=== PATIENT | female | born 1965 | race African-American/Black ===

== ENCOUNTER 2023-03-04 22:57 | Observation (INO) | payer OTHER ==
--- OUTSIDE RECORDS SUMMARY | 2023-03-04 23:01 | XMS REPORT | Continuity of Care Document ---
:1965 Author Organization [facility] t Address [address] [place] [address]. [address] [place] [address] Care Team Providers Name Role Phone PCP, PATIENT DOES NOT HAVE A Primary Care Physician Unavaila Amilcar Pastrana Attending Clinician Unavailable Amilcar Au Attending Clinician Sandra FIELD SUPPORT REPRESENTATIVEDavid Attending Clinician Unknown, Attending Attending Clinician Unavailable DAVID CANALES Attending Clinician Unavailable Provider, [facility] Attending Clinician Unavailable Doctor Unassigned, [place] Attending Clinician Unavailable NIKITA CRONIN Attending Clinician Unavailable CLAIR MENDEZ Attending Clinician Unavailable Amilcar BOX Admitting Clinician Unavailable Payers Payer Name Policy Type Policy Number Effective Date Expiration Date S ellie [employer] [id number] 2023 00:00:00 Problems Condition Condition Condition Status Onset Resolution Last Treating Co mments Source Name Details Category Date Date Treatment Clinician Date No known No known Disease Unive rs active active ity of problems problems [facility] Allergies, Adverse Reactions, Alerts Allergy Allergy Status Severity Reaction(s) Onset Inactive Treating Comm ents Source Name Type Date Date Clinician NO KNOWN Drug Active Univers ALLERGIE Class ity of S [facility] Social History Social Habit Start Date Stop Date Quantity Comments Source Gender identity 2021-09-02 Identifies as [facility] 19:39:29 female gender [facility] (finding) [facility] History of tobacco Current smoker [facility] Exposure to 2023-01-28 2023-02-07 Not sure [facility]-CoV-2 (event) 00:00:00 21:38:00 [facility] Tobacco use and 2022-08-28 2022-08-28 Smokeless tobacco Un iversity of exposure 00:00:00 00:00:00 non-user [facility] Cigarette 2021-09-02 2021-09-02 Worship pack-years 00:00:00 00:00:00 Hospital Alcohol intake 2021-09-02 2021-09-02 Current Worship 00:00:00 00:00:00 non-drinker of Hospital alcohol (finding) History of Social 2021-09-02 2021-09-[address] function 00:00:00 00:00:00 Hospital Sex Assigned At [birth year] Universit y of 00:00:00 00:00:00 [facility] Smoking Status Start Date Stop Date Source Tobacco smoking [facility] consumption unknown Medical Bran ch Never smoked tobacco [facility] Ex-smoker 2021-09-02 00:00:00 2021-09-02 [facility] 00:00:00 Medications Ordered Filled Start Stop Current Ordering Indication Dosage Frequency Signature Comments Components Source Medication Medication Date Date Medication? Clinician (SIG) Name Name naproxen 2022- 500mg 500 mg, Univ ers (NAPROSYN) 02-08 05-30 Oral, ity of tablet 500 01:45: 02:22 ONCE, 1 La[place] as mg 00 :00 dose, On Medical Mon Branch 02/07/23 at 204, Routine naproxen Yes [id number] 500mg Take 1 U nivers (NAPROSYN) 02-07 tablet by ity of 500 mg 00:00: mouth in [place] tablet 00 the Medical morning Branch and 1 tablet in the evening. Take with meals. losartan 50 2021-09 Yes 50mg Take 50 mg Univers mg tablet 2-17 by mouth. ity o f 18:59: [address] losartan 50 2021-09 Yes 50mg Take 50 mg Univers mg tablet 2-17 by mouth. ity o f 18:59: [address] losartan 50 2021-09 Yes 50mg Take 50 mg Univers mg tablet 2-17 by mouth. ity o f 18:59: [address] Branch losartan 50 2021-09- No [id number] 50mg Take 1 Univers mg tablet 10-29 tablet by ity of 00:00: 05:59 mouth in [place] 00 :00 the Medical morning [place] for 14 days. losartan 50 2021-09- No [id number] 50mg Take 1 Univers mg tablet 10-29 tablet by ity of 00:00: 05:59 mouth in [place] 00 :00 the [facility] morning Royal for 14 days. losartan 2020-09 Yes 50mg QD Take 50 mg Met hodi (COZAAR) 50 2-[address] MG tablet 16:03: daily. Hospit a 58 l Vital Signs Vital Name Observation Time Observation Value Comments Source Systolic blood 2023-02-08 02:24:26 217 mm[Hg] Univer sity [facility] Diastolic blood 2023-02-08 02:24:26 101 mm[Hg] [facility] rate 2023-02-08 02:24:26 64 /min [facility] Respiratory rate 2023-02-08 02:24:26 16 /min [facility] Oxygen saturation in 2023-02-08 02:24:26 99 /min [facility] Arterial blood by [facility] Pulse oximetry Royal Body temperature 2023-02-08 00:36:[address] [facility] Body height 2023-02-08 00:36:00 170.2 cm [facility] Body weight 2023-02-08 00:36:00 97.977 kg [facility] BMI 2023-02-08 00:36:00 33.83 kg/m2 [facility] Systolic blood 2022-08-29 01:13:00 188 mm[Hg] [facility] 2022-08-29 01:13:00 76 mm[Hg] [facility] Body temperature 2022-08-29 00:58:[address] [facility] Respiratory rate 2022-08-29 00:58:00 16 /min [facility] Body weight 2022-08-29 00:58:00 97.977 kg [facility] Medical Royal Oxygen saturation in 2022-08-29 00:58:00 98 /min [facility] Arterial blood by [facility] Pulse oximetry Branch Heart rate 2022-08-29 00:58:00 77 /min [facility] Medical Branch Procedures Procedure Date / Time Performing Clinician Source Performed ASSIGNMENT OF BENEFITS 2023-02-08 01:43:06 Doctor Unassbenita, [facility] [place] [facility] NOTICE OF PRIVACY 2023-02-08 00:25:05 Doctor Unassigned, [facility] PRACTICES [place] [facility] CONSENT/REFUSAL FOR 2023-02-08 00:24:34 Doctor Unassbenita, [facility] DIAGNOSIS AND TREATMENT [place] [facility] CONSENT/REFUSAL FOR 2022-08-29 00:53:00 Doctor Unassigned, [facility] DIAGNOSIS AND TREATMENT [place] [facility] PATIENT FINANCIAL Doctor Maxi, [facility] RESPONSIBILITY - ALL [place] [facility] Bra nch FORMS Plan of Care Planned Activity Planned Date Details Comments Source Future Scheduled 2023-02-26 [facility] Test 20:46:26 malignant neoplasm of colon (procedure) [code = 090612679] Future Scheduled 2023-02-26 [facility] 20:46:26 malignant neoplasm of colon (procedure) [code = 053860987] Future Scheduled 2023-02-26 [facility] Test 20:46:26 malignant neoplasm of colon (procedure) [code = 335484292] Future Scheduled 2023-02-26 COVID-19 VACCINE [facility] Test 20:46:26 (#1) [code = COVID-19 VACCINE (#1)] Future Scheduled 2023-02-26 Hepatitis C [facility] 20:46:26 screening (procedure) [code = 556963396] Future Scheduled 2023-02-26 [facility] Test 20:46:26 malignant neoplasm of cervix (procedure) [code = 021212843] Future Scheduled 2023-02-26 BREAST CANCER [facility] Test 20:46:26 SCREENING [code = BREAST CANCER SCREENING] Future Scheduled 2023-02-26 [facility] Test 20:46:26 malignant neoplasm of colon (procedure) [code = 108030194] Future Scheduled 2023-02-26 [facility] Test 20:46:26 malignant neoplasm of colon (procedure) [code = 180612707] Future Scheduled 2023-02-26 SHINGLES VACCINES [facility] Test 20:46:26 (1 of 2) [code = SHINGLES VACCINES (1 of 2)] Future Scheduled 2023-02-26 INFLUENZA VACCINE [facility] Test 20:46:26 [code = INFLUENZA VACCINE] Encounters Start End Encounter Admission Attending Care Care Encounter Source Date/Time Date/Time Type Type Clinicians Facility Department ID 2023-02-07 2023-02-07 Emergency X Amilcar BOX [facility] ERT [id number] Univers 19:39:00 21:42:00 ity [facility] 2023-02-07 2023-02-07 Emergency X Amilcar BOX [facility] ERT [id number] Univers 19:39:00 21:42:00 ity [facility] 2023-02-07 2023-02-07 Emergency [facility] [id number] Univers 19:39:00 21:42:00 Leona LOUIS [id number] i ty [facility] [id number] [facility] [id number] [address] 2022-08-28 2022-08-28 Urgent David Canales [facility] [id number] Univers 19:00:00 19:20:00 Care Unknown, [facility] [id number] ity [facility] [id number] Laith as CURT?BLEA [id number] [address] MEDICAL OFFICE BUILDING 2022-08-28 2022-08-28 Outpatient R SANDRA [facility] [id number] Univers 19:00:00 19:00:00 DAVID saleem [facility] 2022-08-28 2022-08-28 Letter Provider, [facility] [id number] Univers 00:00:00 00:00:00 (Out) [facility] FELIZ [id number] it y of Urgent Care [place] [id number] [place] CURT?BLEA [id number] Nm dical [place] [address] Branch MEDICAL OFFICE BUILDING 2022-08-28 2022-08-28 Orders Doctor CLAIR [id number] Univers 00:00:00 00:00:00 Only Unassigned, HANNA [id number] ity of [place] [facility] [id number] Laith as [id number] [facility] emilia 009 Branch 2021-09-02 2021-09-02 Outpatient CRONIN, [facility] [id number] [place] 00:00:00 00:00:00 VINCELLIS [address] 2021-08-30 2021-08-30 Emergency ANDREA, [facility] 06 [id number] [place] 00:00:00 00:00:00 CLAIR [address] Orders Doctor CLAIR [id number] [facility] 00:00:00 00:00:00 Only Unassigned, HANNA [id number] ity of [place] [facility] [id number] Laith as [id number] [address] Results This patient has no known results.
[2023-03-04 23:54] LABS: Absolute Lymphocytes (CBC) 1.9 K/uL (0.7-4.9); Hematocrit 38.8 % (36.0-45.0); Lymphocytes % 37.4 % (15.3-44.8); MCV 92.1 fL (80-100); MPV 10.4 fL (7.6-11.3); RBC Red Blood Cell Count 4.21 M/uL (3.86-4.86)
[2023-03-05] MEDS ORDERED: MORPHINE 4 MG/ML SYR ONE (00:06)
[2023-03-05] MEDS ORDERED: ONDANSETRON 4 MG/2 ML VIAL ONE (00:06)
[2023-03-05] MEDS ORDERED: HYDRALAZINE HCL 20 MG/ML VIAL ONE (00:06)
[2023-03-05 00:22] LABS: Albumin 3.6 g/dL (3.4-5.0); Bilirubin Direct 0.1 mg/dL (0-0.2); Bilirubin Indirect, Calculated 0.5 mg/dL (0.2-0.8); Bilirubin Total 0.6 mg/dL (0.2-1.0); Magnesium 2.4 mg/dL (1.6-2.4); Potassium 3.6 mEq/L (3.5-5.1); Protein, Total 7.1 g/dL (6.4-8.2); Troponin High Sensitivity 23.1 pg/mL (<58.9)
[2023-03-05 00:23] LABS: Protime INR 0.8
--- NOTE | 2023-03-05 01:28 | ER ---
Nurse's Notes [facility] Name: Petra Hightower Age: 57 yrs Sex: Female : 1965 Arrival Date: 03/04/2023 Time: 22:57 Bed 14 Private MD: Diagnosis: Chest pain, unspecified Presentation: 03/04 23:07 Chief complaint: Patient states: chest pain began last pm. Coronavirus screen: Vaccine kl status: Patient reports being unvaccinated. Ebola Screen: Patient negative for fever greater than or equal to 101.5 degrees Fahrenheit, and additional compatible Ebola Virus Disease symptoms. Initial Sepsis Screen: Does the patient meet any 2 criteria? No. Patient's initial sepsis screen is negative. Does the patient have a suspected source of infection? No. Patient's initial sepsis screen is negative. Risk Assessment: Do you want to hurt yourself or someone else? Patient reports no desire to harm self or others. 23:07 Method Of Arrival: Ambulatory 23:07 Acuity: RENETTA 3 kl Triage Assessment: 23:10 General: Appears uncomfortable, Behavior is calm, cooperative. Pain: Complains of pain kl in anterior aspect of left upper chest and left breast Pain currently is 9 out of 10 on a pain scale. at worst was 10 out of 10 on a pain scale. Aggravated by increased activity. Historical: - Allergies: 23:08 No Known Allergies; kl - Home Meds: 23:08 Flexeril Oral 10 mg as needed [Active]; losartan 50 mg oral tablet daily [Active]; kl - PMHx: 23:08 Hypertensive disorder; kl - PSHx: 23:08 None; kl - Immunization history:: Adult Immunizations not up to date. - Social history:: Smoking status: Patient denies any tobacco usage or history of. Screenin/24 01:00 [facility] ED Fall Risk Assessment (Adult) History of falling in the last 3 months, ll3 including since admission No falls in past 3 months (0 pts) Confusion or Disorientation No (0 pts) Intoxicated or Sedated No (0 pts) Impaired Gait No (0 pts) Mobility Assist Device Used No (0 pt) Altered Elimination No (0 pt) Score/Fall Risk Level 0 - 2 = Low Risk Oriented to surroundings, Maintained a safe environment, Educated pt \T\ family on fall prevention, incl call for assistance when getting out of bed. Abuse screen: Denies threats or abuse. Denies injuries from another. Nutritional screening: No deficits noted. Tuberculosis screening: No symptoms or risk factors identified. Assessment: 03/04 23:30 General: Appears uncomfortable, Behavior is calm, cooperative. Pain: Complains of pain ll3 in chest Pain radiates to anterior aspect of left upper chest Pain currently is 10 out of 10 on a pain scale. Pain began 1 day ago. Is continuous. Cardiovascular: Patient's skin is warm and dry. Rhythm is sinus bradycardia Chest pain is described as mild, quality is heaviness, is located in left anterior chest wall radiates to left jaw(s) began 1 day ago episodes are continuous. Respiratory: Respiratory effort is even, unlabored, Respiratory pattern is regular, symmetrical. Derm: Skin is pink, warm \T\ dry. Vital Signs: 23:07 BP 213 / 104; Pulse 70; Resp 18; Temp 97.9(TE); Pulse Ox 100% ; Weight 97.52 kg (R); kl Height 5 ft. 7 in. ; Pain 9/10; 03/05 00:15 BP 146 / 83; Pulse 58; Resp 16; Pulse Ox 98% on R/A; ll3 03/04 23:07 Body Mass Index 33.67 (97.52 kg, 170.18 cm) 03/04 23:07 Pain Scale: Adult ED Course: 03/04 23:00 Patient arrived in ED. es 23:06 Ryan Perez PA is PHCP. [facility] 23:06 Aly Gasca MD is Attending Physician. [facility] 23:08 Triage completed. 23:43 Initial lab(s) drawn, by nd, sent to lab. Inserted saline lock: 22 gauge in right ll3 antecubital area, using aseptic technique. Blood collected. 03/05 00:18 XRAY Chest (1 view) In Process Unspecified. EDMS 01:00 Patient has correct armband on for positive identification. Placed in gown. Bed in low ll3 position. Call light in reach. Side rails up X 1. Adult w/ patient. Client placed on continuous cardiac and pulse oximetry monitoring. NIBP monitoring applied. 01:00 Arm band placed on Patient placed in an exam room, on a stretcher, on pulse oximetry. ll3 01:27 Tanner Hercules MD is Hospitalizing Provider. [facility] 04:19 No provider procedures requiring assistance completed. Patient admitted, IV remains in ll3 place. Patient maintains SpO2 saturation greater than 95% on room air. 10:18 Brandy Mao, RN is Primary Nurse. db Administered Medications: 00:09 Drug: morphine IVP or IV 4 mg Route: IVP; Infused Over: 4 mins; Site: right antecubital;ll3 04:15 Follow up: Response: No adverse reaction; Marked relief of symptoms ll3 00:09 Drug: Ondansetron IVP 4 mg Route: IVP; Site: right antecubital; ll3 04:15 Follow up: Response: No adverse reaction ll3 00:09 Drug: hydrALAZINE IVP 5 mg Route: IVP; Site: right antecubital; ll3 01:00 Follow up: Response: No adverse reaction; Blood pressure is lowered ll3 01:53 Drug: Aspirin PO Chewable Tablet 324 mg Route: PO; ll3 04:14 Follow up: Response: No adverse reaction 3 Medication: 04:20 VIS not applicable for this client. ll3 Outcome: 01:27 Decision to Hospitalize by Provider. [facility] 04:20 Admitted to ER Hold. Please see [facility] for further documentation. 3 04:20 Condition: stable 04:20 Instructed on the need for admit. 11:21 Patient left the ED. db Signatures: Dispatcher [employer] Radha Yates RN RN kl Mickail, Joel, PA PA Miriam Castellanos Lynsea, RN RN [facility] Brandy Mao, RN RN db Corrections: (The following items were deleted from the chart) 03/04 23:10 23:08 Allergies: No Known Allergies; sebastian cortes
--- NOTE | 2023-03-05 01:28 | EDPHYS ---
Physician Documentation [facility] Name: Petra Hightower Age: 57 yrs Sex: Female : 1965 Arrival Date: 03/04/2023 Time: 22:57 Bed 14 Private MD: ED Physician Aly Gasca HPI: 03/04 23:13 This 57 yrs old Female presents to ER via Ambulatory with complaints of Chest Pain. jmm 23:13 The patient or guardian reports chest pain that is located primarily in the substernal [facility] area. Onset: gradually, 1 day(s) ago. The pain does not radiate. Associated signs and symptoms: Pertinent negatives: lower extremity pain, lower extremity swelling. The chest pain is described as aching. Duration: The patient or guardian reports a single episode. Modifying factors: The symptoms are alleviated by nothing. the symptoms are aggravated by nothing. Historical: - Allergies: 23:08 No Known Allergies; kl - Home Meds: 23:08 Flexeril Oral 10 mg as needed [Active]; losartan 50 mg oral tablet daily [Active]; kl - PMHx: 23:08 Hypertensive disorder; kl - PSHx: 23:08 None; kl - Immunization history:: Adult Immunizations not up to date. - Social history:: Smoking status: Patient denies any tobacco usage or history of. ROS: 23:13 Constitutional: Negative for fever, chills, and weight loss. jmm 23:13 Respiratory: Negative for shortness of breath, cough, wheezing, and pleuritic chest pain, Abdomen/GI: Negative for abdominal pain, nausea, vomiting, diarrhea, and constipation. 23:13 Cardiovascular: Positive for chest pain. 23:13 All other systems are negative. Exam: 23:13 Constitutional: This is a well developed, well nourished patient who is awake, alert, jmm and in no acute distress. Head/Face: atraumatic. Eyes: EOMI, no conjunctival erythema appreciated ENT: Moist Mucus Membranes Neck: Trachea midline, Supple Chest/axilla: Normal chest wall appearance and motion. Cardiovascular: Regular rate and rhythm. No edema appreciated Respiratory: Normal respirations, no respiratory distress appreciated Abdomen/GI: Non distended Back: Normal ROM Skin: General appearance color normal MS/ Extremity: Moves all extremities, no obvious deformities appreciated, no edema noted to the lower extremities Neuro: Awake and alert Psych: Behavior is normal, Mood is normal, Patient is cooperative and pleasant Vital Signs: 23:07 BP 213 / 104; Pulse 70; Resp 18; Temp 97.9(TE); Pulse Ox 100% ; Weight 97.52 kg (R); Height 5 ft. 7 in. ; Pain 9/10; 03/05 00:15 BP 146 / 83; Pulse 58; Resp 16; Pulse Ox 98% on R/A; ll3 03/04 23:07 Body Mass Index 33.67 (97.52 kg, 170.18 cm) 03/04 23:07 Pain Scale: Adult kl MDM: 03/04 23:18 Patient medically screened. [facility] 03/05 01:26 Differential diagnosis: acute myocardial infarction, acute pericarditis, anxiety, [facility] stable angina, unstable angina. The patient was given aspirin in the Emergency Department. 01:26 Data reviewed: vital signs, nurses notes, lab test result(s), EKG, radiologic studies, [facility] plain films. Consideration of Admission/Observation Patient was admitted/placed on observation. Escalation of care including admission/observation considered. Counseling: I had a detailed discussion with the patient and/or guardian regarding: the historical points, exam findings, and any diagnostic results supporting the discharge/admit diagnosis, radiology results, the need for outpatient follow up, to return to the emergency department if symptoms worsen or persist or if there are any questions or concerns that arise at home. 03/04 23:13 Order name: Basic Metabolic Panel; Complete Time: 00:24 [facility] 03/04 23:13 Order name: CBC with Diff; Complete Time: 23:59 [facility] 03/04 23:13 Order name: LFT's; Complete Time: 00:24 [facility] 03/04 23:13 Order name: Magnesium; Complete Time: 00:24 [facility] 03/04 23:13 Order name: NT PRO-BNP; Complete Time: 00:24 [facility] 03/04 23:13 Order name: PT-INR; Complete Time: 00:27 [facility] 03/04 23:13 Order name: Troponin HS; Complete Time: 00:24 [facility] 03/05 02:12 Order name: DD; Complete Time: 04:50 la1 03/05 04:50 Order name: Lipid Profile [facility] 03/05 04:51 Order name: Troponin High Sensitivity [facility] 03/05 04:56 Order name: T4 Free [facility] 03/05 04:56 Order name: Thyroid Stimulating Hormone [facility] 03/05 11:08 Order name: Potassium [facility] 03/05 11:12 Order name: Troponin High Sensitivity [facility] 03/04 23:13 Order name: XRAY Chest (1 view) [facility] 03/04 23:13 Order name: EKG; Complete Time: 23:14 [facility] 03/04 23:13 Order name: Cardiac monitoring; Complete Time: 23:33 [facility] 03/04 23:13 Order name: EKG - Nurse/Tech; Complete Time: 23:33 [facility] 03/04 23:13 Order name: IV Saline Lock; Complete Time: 23:43 [facility] 03/04 23:13 Order name: Labs collected and sent; Complete Time: 23:43 [facility] 03/04 23:13 Order name: O2 Per Protocol; Complete Time: 23:33 [facility] 03/04 23:13 Order name: O2 Sat Monitoring; Complete Time: 23:33 [facility] Administered Medications: 00:09 Drug: morphine IVP or IV 4 mg Route: IVP; Infused Over: 4 mins; Site: right antecubital;ll3 04:15 Follow up: Response: No adverse reaction; Marked relief of symptoms ll3 00:09 Drug: Ondansetron IVP 4 mg Route: IVP; Site: right antecubital; ll3 04:15 Follow up: Response: No adverse reaction ll3 00:09 Drug: hydrALAZINE IVP 5 mg Route: IVP; Site: right antecubital; ll3 01:00 Follow up: Response: No adverse reaction; Blood pressure is lowered ll3 01:53 Drug: Aspirin PO Chewable Tablet 324 mg Route: PO; ll3 04:14 Follow up: Response: No adverse reaction ll3 Disposition: 06:14 Co-signature as Attending Physician, Aly Gasca MD I agree with the assessment sp4 and plan of care. I reviewed the patient's care provided by the Advanced Practice Provider and agree with the diagnosis and treatment plan. Disposition Summary: 03/05/23 01:27 Hospitalization Ordered Hospitalization Status: Observation jm Provider: Tanner Hercules Condition: Stable jm Problem: new jmm Symptoms: are unchanged [facility] Bed/Room Type: Standard [facility] Location: Telemetry/MedSurg (observation)(03/05/23 10:17) laura Room Assignment: 427(03/05/23 10:17) laura Diagnosis - Chest pain, unspecified [facility] Forms: - Medication Reconciliation Form [facility] - SBAR form [facility] Signatures: Dispatcher [employer] EDRadha Solares RN RN Ryan Perez PA PA [facility] Kevan Egan, ACCOUNT REVIEW SPECIALIST-C ACCOUNT REVIEW SPECIALIST-Cla1 Dwayne Carranza RN RN ja1 Thu Martinez RN RN 3 Vidhya Arias 6 Aly Gasca MD MD sp4 Corrections: (The following items were deleted from the chart) 03/04 23:10 23:08 Allergies: No Known Allergies; [facility] 03/05 01:37 01:27 Telemetry/MedSurg (observation) [place] [address] 01:37 01:27 [place] [address] 10:17 01:37 [facility] ER HOLD [place] [address] 10:17 01:37 ERHOLD- [place] [address]
[2023-03-05] MEDS ORDERED: ASPIRIN 81 MG CHEWABLE TABLET ONE (01:55)
--- NOTE | 2023-03-05 02:19 | P.HP ---
Certification for Inpatient Patient admitted to: Observation With expected LOS: <2 Midnights Patient will require the following post-hospital care: None Practitioner: I am a practitioner with admitting privileges, knowledge of patient current condition, hospital course, and medical plan of care. Services: Services provided to patient in accordance with Admission requirements found in Title 42 Section 412.3 of the Code of Federal Regulations <Kevan Egan Gato Randall - Last Filed: 03/05/23 02:17> Patient History Date of Service: 03/05/23 Reason for admission: Chest pain History of Present Illness: 57-year-old female with history of hypertension presents emergency department chief complaint of chest pain. She reports that the chest pain began on the evening of 03/03/2023 prior to going to bed. She describes the pain as sharp/tightness she does report its worse with exertion with some shortness of breath as well. She reports her last tress test was about 5 to 6 years ago she takes losartan at home for hypertension but no other home medications. She is evaluated in the emergency department her initial high-sensitivity opponent was normal at 20.1 EKG without STEMI criteria present chest x-ray is unremarkable. ED provider wishes to admit under observation for ACS rule out. - Past Medical/Surgical History -: Hypertension -: None Psychosocial/ Personal History: Patient works as a gaming cashier, lives at home with her - Family History Father -: Diabetes - Social History Smoking Status: Never smoker Alcohol use: No CD- Drugs: No Caffeine use: Yes Place of Residence: Home <Kevan Egan Gato Randall - Last Filed: 03/05/23 02:17> Date of Service: 03/05/23 <Tanner Hercules - Last Filed: 03/05/23 15:50> Review of Systems 10-point ROS is otherwise unremarkable Respiratory: SOB with Excertion Cardiovascular: Chest Pain <Kevan Egan - Last Filed: 03/05/23 02:17> Physical Examination - Physical Exam General: Alert, In no apparent distress, Oriented x3 HEENT: Atraumatic, PERRLA, Mucous membr. moist/pink, EOMI, Sclerae nonicteric Neck: Supple, 2+ carotid pulse no bruit, No LAD, Without JVD or thyroid abnormality Respiratory: Clear to auscultation bilaterally, Normal air movement Cardiovascular: Regular rate/rhythm, Normal S1 S2 Capillary refill: <2 Seconds Gastrointestinal: Normal bowel sounds, No tenderness Musculoskeletal: No tenderness Integumentary: No rashes Neurological: Normal gait, Normal speech, Normal strength at 5/5 x4 extr, Normal tone, Normal affect Lymphatics: No axilla or inguinal lymphadenopathy - Studies Laboratory Data (last 24 hrs) 03/04/23 23:41: PT 9.6, INR 0.80 03/04/23 23:41: WBC 5.00, Hgb 12.8, Hct 38.8, Plt Count 190 03/04/23 23:41: Sodium 142, Potassium 3.6, BUN 17, Creatinine 0.95, Glucose 108 H, Magnesium 2.4, Total Bilirubin 0.6, AST 11 L, ALT 23, Alkaline Phosphatase 108 <Kevan Egan - Last Filed: 03/05/23 02:17> - Studies Laboratory Data (last 24 hrs) 03/04/23 23:41: PT 9.6, INR 0.80 03/04/23 23:41: WBC 5.00, Hgb 12.8, Hct 38.8, Plt Count 190 03/04/23 23:41: Sodium 142, Potassium 3.6, BUN 17, Creatinine 0.95, Glucose 108 H, Magnesium 2.4, Total Bilirubin 0.6, AST 11 L, ALT 23, Alkaline Phosphatase 108 <Tanner Hercules - Last Filed: 03/05/23 15:50> Assessment and Plan - Plan Assessment: Chest pain rule out ACS Hypertension Plan: Chest pain rule out ACS Trend troponins, monitor on telemetry. Cardiology consult. Given aspirin in ED. Will obtain D-dimer to rule out PE given persistent chest pain, dyspnea on exertion. Appreciate further input from cardiology. Lipid panel in the morning. Hypertension Blood pressure elevated, patient on losartan currently we will add metoprolol tartrate. DVT PPX: Lovenox Code status: Full Discharge Plan: Home Plan to discharge in: 24 Hours - Advance Directives Does patient have a Living Will: No Does patient have a Durable POA for Healthcare: No - Code Status/Comfort Care Code Status Assessed: Yes (Full code) Critical Care: No Time Spent Managing Pts Care (In Minutes): 55 <Kevan Egan - Last Filed: 03/05/23 02:17> Physician Review: Patient Assessed, Agree with Above Assessment and Plan <Tanner Hercules - Last Filed: 03/05/23 15:50>
[2023-03-05] MEDS ORDERED: MORPHINE 2 MG/ML SYR IV PRN (02:38)
[2023-03-05] MEDS ORDERED: ONDANSETRON 4 MG/2 ML VIAL IV PRN (02:38)
[2023-03-05 04:56] LABS: Thyroid Stimulating Hormone 3.01 uIU/mL (0.358-3.740)
[2023-03-05] MEDS: METOPROLOL TAR 25 MG TAB PO SCH ×2 (06:00→17:50)
[2023-03-05] MEDS ORDERED: METOPROLOL TAR 25 MG TAB ONE (06:01)
[2023-03-05] MEDS: ASPIRIN EC 81 MG TAB PO SCH (09:00)
[2023-03-05] MEDS: LOSARTAN POTASSIUM 50 MG TABLET PO SCH (09:00)
[2023-03-05 10:36] VITALS: O2SAT 99
[2023-03-05] MEDS ORDERED: LOSARTAN POTASSIUM 50 MG TABLET ONE (10:49)
[2023-03-05] MEDS ORDERED: ASPIRIN EC 81 MG TAB PO ONE (10:50)
[2023-03-05] MEDS ORDERED: CALCIUM CARBONATE CHEW 500MG TAB PO PRN (11:52)
[2023-03-05] MEDS ORDERED: POTASSIUM 25 MEQ EFFERV TAB PO ONE (12:00)
[2023-03-05] MEDS: ACETAMINOPHEN 325 MG TABLET PO PRN (12:05)
[2023-03-05] MEDS ORDERED: ATORVASTATIN 40 MG TAB PO SCH (21:00)
--- NOTE | 2023-03-05 21:15 | RAD REPORT ---
EXAM DESCRIPTION: USExtrem Venous W Compress Bil03/05/2023 9:01 pm CLINICAL HISTORY: Elevated D-dimer COMPARISON: none FINDINGS: The common femoral, superficial femoral, greater saphenous, popliteal and posterior tibial veins bilaterally are compressible and demonstrate augmentation. Doppler demonstrates good flow. Grayscale, color and spectral analysis performed on all vessels IMPRESSION: No evidence of deep venous thrombosis involving either lower extremity.
--- NOTE | 2023-03-05 21:22 | RAD REPORT ---
EXAM DESCRIPTION: USCarotid Artery Bilateral03/05/2023 9:01 pm CLINICAL HISTORY: Neck pain COMPARISON: None FINDINGS: The velocity of the right internal carotid artery equals 273 cm/sec. The right ICA/CCA rat io is elevated The velocity of the left internal carotid artery equals 214 cm/sec. The left ICA/CCA ratio is elevat ed Mild plaque is present within the carotid arteries. The vertebral arteries demonstrate antegrade flow IMPRESSION: Elevated velocities of right and left internal carotid arteries most likely secondary to tortuosity. Mild plaque is present within the carotid arteries NASCET criteria used. Mild 0-49% stenosis Moderate 50-69% stenosis Severe 70-99% stenosis
--- NOTE | 2023-03-05 21:35 | RAD REPORT ---
EXAM DESCRIPTION: RAD - Chest Single View - 03/05/2023 12:17 am CLINICAL HISTORY: 57 years, Female, CHEST PAIN COMPARISON: None. FINDINGS: Single view of the chest was obtained portable. No prior films are available for compariso n. External EKG leads within the [id number] limits diagnosis. The cardiomediastinal silhouette dem onstrate to be unremarkable. The heart is not enlarged. The thoracic aorta is mildly tortuous with in timal aortic arch ossification. The pulmonary vasculature is normal distribution. Costophrenic angles are sharp. No areas of consolidation or masses are seen. The rest of the soft tissue and bony st ructures demonstrate to be unremarkable. IMPRESSION: No acute cardiopulmonary disease seen. Electronically signed by: Gumaro Helm MD 03/05/2023 12:46 AM CDT Due to temporary technical issues with the PACS/Fluency reporting system, reports are being signed by the in house radiologists without review as a courtesy to insure prompt reporting. The interpreting radiologist is fully responsible for the content of the report.
--- NOTE | 2023-03-05 21:39 | RAD REPORT ---
EXAM DESCRIPTION: CT - Chest For Pe Angio - 03/05/2023 6:25 am CLINICAL HISTORY: Chest pain, elevated DDimer TECHNIQUE: Contiguous axial images obtained through the chest during angiographic phase following th e uneventful administration of IV contrast. Sagittal and coronal reformatted images were provided. 3- D MIP reformatted images were provided. This exam was performed according to our departmental dose-optimization program, which includes autom ated exposure control, adjustment of the mA and/or kV according to patient size and/or use of iterati ve reconstruction technique. COMPARISON: No prior exams provided for comparison. FINDINGS: Diagnostic quality: Suboptimal visualization of subsegmental pulmonary arteries. Lungs: No focal consolidation. Airways are patent. Pleura: No effusion. No pneumothorax. Heart and pericardium: The heart is normal in size. No pericardial effusion. Mediastinum and emmanuel: No pathologically enlarged lymph nodes. Lower neck and chest wall: Unremarkable Vessels: No evidence of central pulmonary emboli.. No thoracic aortic aneurysm. Upper abdomen: Unremarkable Bones: Unremarkable IMPRESSION: 1. No evidence of central pulmonary emboli. Suboptimal visualization of subsegmental p ulmonary arteries. 2. No focal consolidation. Electronically signed by: Dwayne David MD 03/05/2023 5:58 AM CDT Due to temporary technical issues with the PACS/Fluency reporting system, reports are being signed by the in house radiologists without review as a courtesy to insure prompt reporting. The interpreting radiologist is fully responsible for the content of the report.
[2023-03-06 02:33] VITALS: BMI 33.6
[2023-03-06 04:03] LABS: Potassium 3.7 mEq/L (3.5-5.1)
[2023-03-06] MEDS: METOPROLOL TAR 25 MG TAB PO SCH (05:43)
[2023-03-06] MEDS ORDERED: POTASSIUM CL SA 10 MEQ TAB PO ONE (09:00)
[2023-03-06] MEDS: ASPIRIN EC 81 MG TAB PO SCH (09:18)
[2023-03-06] MEDS: LOSARTAN POTASSIUM 50 MG TABLET PO SCH (09:19)
[2023-03-06 10:00] VITALS: TEMP 97.6
[2023-03-06 12:24] VITALS: BP 172/92
[2023-03-06] MEDS: ACETAMINOPHEN 325 MG TABLET PO PRN (12:47)
--- NOTE | 2023-03-06 14:24 | EKG ---
Test Date: 2023-03-04 Test Time: 23:28:21 Procurement Professional: TOM MEASUREMENT RESULTS: Intervals: Rate: 59 [place]: 152 QRSD: 84 QT: 422 QTc: 417 [place]: P: 69 [place]: 152 QRS: 45 T: 36 INTERPRETIVE STATEMENTS: Sinus bradycardia Otherwise normal ECG No previous ECG available for comparison Electronically Signed On 03-06-23 14:22:04 CDT by Peyman Tabor
--- NOTE | 2023-03-06 16:05 | P.DS ---
Admission Date: 03/05/23 Discharge Date: 03/06/23 Disposition: ROUTINE DISCHARGE Discharge Condition: GOOD Reason for Admission: Chest pain Consultations: 1. Cardiology Hospital Course: DIAGNOSES: # Hypertensive Urgency with Chest Pain # Dyslipidemia HOSPITAL COURSE: Ms. Petra Hightower is a pleasant 57 year old female with a past medical history significant for hypertension who was admitted to the [facility] on 03/05/2023 for chest pain. She was admitted to the Medicine service. Upon further evaluation, her initial blood pressure was 213/104. Her laboratory studies were notable for a d-dimer of 1012. Her troponin trend was 23.1 -> 22.1 -> 22.9. Her chest x-ray revealed, "no acute cardiopulmonary disease seen." Her CT chest angiogram revealed, "1. No evidence of central pulmonary emboli. Suboptimal visualization of subsegmental pulmonary arteries. 2. No focal consolidation." Her carotid ultrasound revealed, "elevated velocities of right and left internal carotid arteries most likely secondary to tortuosity. Mild plaque is present within the carotid arteries." Her bilateral lower extremity Doppler revealed, "no evidence of deep venous thrombosis involving either lower extremity." Cardiology was consulted and she was evaluated by Dr. Tabor. He felt that her chest pain was non-cardiac in nature. He has cleared her to be discharged home with outpatient follow-up and an outpatient nuclear stress test. On 03/06/2023, she was seen on rounds and deemed medically stable for discharge. She was discharged with instructions to schedule follow-up appointments with her PCP (Dr. Frausto) and with Cardiology (Dr. Tabor). She was provided prescriptions for metoprolol and atorvastatin. She and her were given th e opportunity to ask questions and reported no further questions. Furthermore, all questions were answered to the best of my ability. A copy of this discharge summary will be sent to the above providers to facilitate continuity of care. Today, I personally spent 25 minutes on his case, of which greater than 50% of the time was spent in patient education, counseling, and coordination of care as described above. Vital Signs/Physical Exam: Temp Pulse Resp BP Pulse Ox 97.6 F 59 18 172/92 H 98 03/06/23 12:00 03/06/23 12:00 03/06/23 12:03/06/23 12:00 03/06/23 12:00 General: Alert, In no apparent distress, Oriented x3 HEENT: Atraumatic, Mucous membr. moist/pink, Sclerae nonicteric Neck: JVD not distended Respiratory: Clear to auscultation bilaterally, Normal air movement Cardiovascular: No edema, Regular rate/rhythm, Normal S1 S2, No gallops, No rubs, No murmurs Gastrointestinal: Normal bowel sounds, Soft and benign, Non-distended, No tenderness, No rebound, No guarding Musculoskeletal: No clubbing Integumentary: No rashes Neurological: Normal speech, Normal affect Laboratory Data at Discharge: WBC 5.00 thou/uL (4.3-10.9) 03/04/23 23:41 Hgb 12.8 g/dL (12.0-15.0) 03/04/23 23:41 Hct 38.8 % (36.0-45.0) 03/04/23 23:41 Plt Count 190 thou/uL (152-406) 03/04/23 23:41 PT 9.6 SECONDS (9.2-12.8) 03/04/23 23:41 INR 0.80 03/04/23 23:41 Sodium 140 mEq/L (136-145) 03/06/23 02:48 Potassium 3.7 mEq/L (3.5-5.1) 03/06/23 02:48 BUN 17 mg/dL (7-18) 03/06/23 02:48 Creatinine 0.86 mg/dL (0.55-1.02) 03/06/23 02:48 Glucose 106 mg/dL (74-106) 03/06/23 02:48 Magnesium 2.4 mg/dL (1.6-2.4) 03/04/23 23:41 Total Bilirubin 0.6 mg/dL (0.2-1.0) 03/04/23 23:41 AST 11 U/L (15-37) L 03/04/23 23:41 ALT 23 U/L (13-56) 03/04/23 23:41 Alkaline Phosphatase 108 U/L (45-117) 03/04/23 23:41 Triglycerides 163 mg/dL (<150) H 03/05/23 04:22 Cholesterol 216 mg/dL (<200) H 03/05/23 04:22 HDL Cholesterol 68 mg/dL (40-60) H 03/05/23 04:22 Cholesterol/HDL Ratio 3.18 03/05/23 04:22 Home Medications: Cyclobenzaprine HCl 10 mg PO Q12HR PRN 03/05/23 Losartan Potassium [Cozaar*] 50 mg PO DAILY 03/05/23 Aspirin Chewable [Aspirin Chewable*] 81 mg PO DAILY #30 tab.chew 03/06/23 Atorvastatin Calcium [Lipitor] 40 mg PO BEDTIME #30 tab 03/06/23 Metoprolol Tartrate [Lopressor*] 25 mg PO BID 6AM 6PM #60 tab 03/06/23 New Medications: Aspirin Chewable [Aspirin Chewable*] 81 mg PO DAILY #30 tab.chew Atorvastatin Calcium [Lipitor] 40 mg PO BEDTIME #30 tab Metoprolol Tartrate [Lopressor*] 25 mg PO BID 6AM 6PM #60 tab Physician Discharge Instructions: 1. Please call and schedule a follow-up appointment with your PCP (Dr. Frausto) in 3-5 days - You have been started on a cholesterol medication called Lipitor (atorvastatin) - Please have Dr. Frausto check your cholesterol and liver levels in about 1 month. At that time, he can refill or adjust your medication doses - Please measure and write down your blood pressure twice per day in a journal. Please bring this journal to your appointment with your PCP - Your thyroid blood test was slightly abnormal. Please have your PCP repeat this level in his office 2. Please call and schedule a follow-up appointment with Cardiology (Dr. Tabor) in 3-5 days - Please have him schedule you for a stress test in his office Diet: AHA Activity: Ad cheko Followup: Tye Frausto MD [ACTIVE - CAN ADMIT] - Peyman Tabor MD [ACTIVE - CAN ADMIT] - Time spent managing pt's care (in minutes): 25
--- NOTE | 2023-03-06 20:42 | CON ---
Date of Consultation: 03/06/2023 Reason For Consultation: Chest pain. History Of Present Illness: A 57-year-old female with history of hypertension, [facility] with chest pain, left-sided, tight and sharp in nature along with some shortness of breath , lasted for more than 20 hours constantly, but she had some muscle trauma and fall prior to that mike nt. She denies having any exertional chest pain. No known history of cardiac disease or exertional symptoms. Past Medical History: As outlined above in the HPI. Medications: Refer to reconciliation sheet for detailed list. Allergies: NO KNOWN DRUG ALLERGIES. Family History: No premature coronary artery disease or cancer. Has history of diabetes. Social History: She does not smoke or drink. Does not use any drugs. Review of Systems: All systems reviewed and they were negative except what mentioned in HPI. Physical Examination: Vital Signs: Reviewed. Head and Neck: Pupils are equal, reactive to light. Intact eye movements. No JVD. No cervical lym phadenopathy. Neck is supple. Thyroid is not enlarged. Lungs: Clear to auscultation bilaterally. No rhonchi, wheezing, or crackles. No accessory muscle u se. Heart: Regular rate and rhythm. No extra sounds. Abdomen: Soft, nontender. Bowel sounds positive. No organomegaly. No masses or hernia. No rigidi ty or rebound. Extremities: No edema, clubbing, or cyanosis. Intact pulses. Skin: No rash. Neurologic: Alert, awake, oriented x3. No acute focal deficits appreciated. Lymph Nodes: No cervical or axillary lymphadenopathy. Investigations: Cardiac enzymes x3 are negative. BUN 17, creatinine 0.87, LDL cholesterol was 115, and hemoglobin is 12.8. Assessment And Recommendations: 1.Chest pain, very atypical, likely noncardiac. Cardiac enzymes are negative. From Card[facility], the patient can be released. Follow up as an outpatient. We will obtain exercise stress kayla t and an echo to complete the workup. 2.Hypertension. Blood pressure is elevated. Resume home medication and adjust further if needed. Thank you for the consult. /MODL Voice ID: [id number] Report ID: [id number]
--- NOTE | 2023-03-07 17:15 | EKG ---
Test Date: 2023-03-05 Test Time: 17:02:54 Sword Swallower: VANDA MEASUREMENT RESULTS: Intervals: Rate: 57 [place]: 158 QRSD: 76 QT: 428 QTc: 416 Bock: P: 59 IA: 158 QRS: 26 T: 22 INTERPRETIVE STATEMENTS: Sinus bradycardia Nonspecific T wave abnormality Abnormal ECG Compared to ECG 03/04/2023 23:28:21 T-wave abnormality now present Electronically Signed On 03-07-23 17:11:17 CDT by Peyman Tabor
== END 2023-03-06 16:49 | disposition home or self-care (01) ==
LOC: ER 22:57 → ERHOLD 03-05 02:12 → 4TH 03-05 10:23
PROVIDERS: ADMIT Internal Medicine; ATTEND Internal Medicine
DX: R07.9 Chest pain, unspecified (principal); I10 Essential (primary) hypertension; E78.5 Hyperlipidemia, unspecified
CPT/HCPCS: 93005; 85025; 80048 ×2; 36415 ×2; 83735; 84132; 85610; 80061; 85379; 80076; 84443; 84484 ×3; 84439; 83880; 71275; 71045; 93880; 93970; 96375; 96374; 99285; Q9967; G0378; J2405